=== PATIENT | male | born 1965 | race Caucasian/White ===

== ENCOUNTER 2019-01-01 15:00 | Inpatient (IN) | payer SELFPAY ==
--- NOTE | 2019-01-01 15:08 | PDOC ---
Rapid Medical Evaluation Time Seen by Provider: 01/01/19 15:02 Medical Evaluation: 01/01/19 15:02 Pt presents to the ER with one day of abdominal pain. Admits to nausea without vomiting. Hx of appendectomy in . Exam: TTP of the RUQ, (+) rice's sign Orders: Labs, IV, RUQ US Pt to proceed to the ER for evaluation Discharge Disposition - Diagnosis Abdominal pain Qualifiers: Abdominal location: right upper quadrant Qualified Code(s): R10.11 - Right upper quadrant pain - Referrals - Patient Instructions - Post Discharge Activity
--- NOTE | 2019-01-01 16:15 | PDOC ---
History of Present Illness - General Chief Complaint: Pain Stated Complaint: ABD PAIN/SENT BY PCP Time Seen by Provider: 01/01/19 15:02 History Source: Patient Exam Limitations: No Limitations - History of Present Illness Initial Comments: 01/01/19 17:31 53 yo M with a hx of HTN (on atenolol) presents to the emergency department with RUQ that began at approximately 7am. Per the patient, he last ate at 2am with a cold cuts and cheese. Per the patient, he states it began suddenly with radiation to the back with associative nausea. Denies previous gallbladder disease. Denies the following: fever, chills, chest pain, SOB, dysuria, hematuria, diarrhea, and hematochezia. Past History - Past Medical History Allergies/Adverse Reactions: Allergies Allergy/AdvReac Type Severity Reaction Status Date / Time Penicillins AdvReac Intermediate Vomiting Verified 01/01/19 15:04 COPD: No HTN: Yes - Surgical History Appendectomy: Yes - Suicide/Smoking/Psychosocial Hx Smoking History: Current every day smoker Number of Cigarettes Smoked Daily: 30 Information on smoking cessation initiated: Yes Hx Alcohol Use: Yes Drug/Substance Use Hx: No Review of Systems - Review of Systems Able to Perform ROS?: Yes Is the patient limited Indonesian proficient: No Constitutional: No: Chills, Diaphoresis, Fever, Weakness HEENTM: No: Eye Pain, Ear Pain, Nose Pain, Throat Pain, Mouth Pain Respiratory: No: Cough, Shortness of Breath, Hemoptysis Cardiac (ROS): No: Chest Pain, Lightheadedness, Palpitations, Syncope ABD/GI: Yes: Nausea, Abdominal cramping. No: Constipated, Diarrhea, Rectal Bleeding, Vomiting, Tarry Stools : No: Burning, Dysuria, Hematuria, Incontinence Musculoskeletal: No: Back Pain, Joint Pain, Neck Pain Integumentary: No: Bruising, Erythema, Rash Neurological: No: Headache, Numbness, Tingling, Tremors Psychiatric: No: Change in Appetite Endocrine: No: Unexplained Weight Gain Hematologic/Lymphatic: No: Anemia *Physical Exam - Vital Signs Last Vital Signs Temp Pulse Resp BP Pulse Ox 98 F 97 H 18 135/96 98 01/01/19 15:04 01/01/19 15:04 01/01/19 15:04 01/01/19 15:04 01/01/19 15:04 - Physical Exam General Appearance: Yes: Nourished, Appropriately Dressed. No: Apparent Distress, Intoxicated HEENT: positive: EOMI, YOSVANY, Normal Voice, Symmetrical, Pharynx Normal, Hearing Grossly Normal. negative: Pale Conjunctivae, Scleral Icterus (R), Scleral Icterus (L), Muffled/Hoarse voice, Pharyngeal Erythema, Tonsillar Exudate, Tonsillar Erythema, Nasal Congestion, Rhinorrhea, Excessive drooling Neck: positive: Trachea midline, Supple. negative: Tender, Lymphadenopathy (R) , Lymphadenopathy (L), Tender lateral, Tender midline Respiratory/Chest: positive: Lungs Clear, Normal Breath Sounds. negative: Chest Tender, Respiratory Distress, Accessory Muscle Use, Crackles, Rales, Rhonchi, Stridor, Wheezing Cardiovascular: positive: Regular Rhythm, Regular Rate, S1, S2. negative: Systolic Murmur Gastrointestinal/Abdominal: positive: Normal Bowel Sounds, Tender (RUQ tenderness with positive murphys sign), Flat, Soft. negative: Distended, Guarding, Rebound Lymphatic: negative: Adenopathy Musculoskeletal: positive: Normal Inspection. negative: CVA Tenderness, Vertebral Tenderness Extremity: positive: Normal Capillary Refill, Normal Inspection, Normal Range of Motion. negative: Tender, Swelling, Calf Tenderness Integumentary: positive: Normal Color, Dry, Warm. negative: Swelling, Ecchymosis Neurologic: positive: strike operations officer II-XII NML intact, Fully Oriented, Alert, Normal Mood/ Affect, Normal Response, Motor Strength 5/5. negative: Numbness, Sensory Deficit ED Treatment Course - LABORATORY CBC & Chemistry Diagram: 01/01/19 16:20 01/01/19 16:20 Medical Decision Making - Medical Decision Making 53 yo M with a hx of HTN (on atenolol) presents to the emergency department with RUQ that began at approximately 7am. Initial vitals: Initial Vital Signs Temp Pulse Resp BP Pulse Ox 98 F 97 H 18 135/96 98 01/01/19 15:04 01/01/19 15:04 01/01/19 15:04 01/01/19 15:04 01/01/19 15:04 Work up: ddx: cholelithiasis vs cholecystitis vs choledocholithiasis vs pancreatitis vs gastritis vs hepatitis Laboratory Tests 01/01/19 01/01/19 01/01/19 09:20 16:20 16:20 WBC 15.6 H RBC 6.26 H Hgb 19.0 H Hct 57.0 H MCV 91.0 MCH 30.4 MCHC 33.4 RDW 13.2 Plt Count 198 MPV 9.1 Absolute Neuts (auto) 11.6 H Neutrophils % 74.6 Lymphocytes % 17.5 Monocytes % 6.6 Eosinophils % 0.7 Basophils % 0.6 Nucleated RBC % 0 Sodium Potassium Chloride Carbon Dioxide Anion Gap BUN Creatinine Est GFR (CKD-EPI)AfAm Est GFR (CKD-EPI)NonAf Random Glucose Calcium Total Bilirubin AST ALT Alkaline Phosphatase Creatine Kinase 142 Troponin I < 0.02 Total Protein Albumin Triglycerides Cholesterol Total LDL Cholesterol HDL Cholesterol Blood Type O POSITIVE Antibody Screen Negative 01/01/19 01/01/19 16:20 16:20 WBC RBC Hgb Hct MCV MCH MCHC RDW Plt Count MPV Absolute Neuts (auto) Neutrophils % Lymphocytes % Monocytes % Eosinophils % Basophils % Nucleated RBC % Sodium 140 Potassium 4.3 Chloride 103 Carbon Dioxide 29 Anion Gap 8 BUN 19.0 H Creatinine 1.0 Est GFR (CKD-EPI)AfAm 99.15 Est GFR (CKD-EPI)NonAf 85.55 Random Glucose 145 H Calcium 10.2 H Total Bilirubin 0.5 AST 51 H ALT 88 H Alkaline Phosphatase 89 Creatine Kinase Troponin I Total Protein 7.6 Albumin 4.3 Triglycerides 323 H Cholesterol 213 H Total LDL Cholesterol 130 H HDL Cholesterol 38 L Blood Type O POSITIVE Antibody Screen WBC elevated; leukocytosis. elevated LFTs with hypertriglyceridemia. 01/01/19 19:17 US shows dilated CBD, stone located near the neck at 2 cm, and gallbladder wall thickening with pericholystic fluid consistent with cholecystitis. Patient was started on metronidazole and levaquin due to PCN allergy. Patient was given an additional 1 L of fluids. 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 At the time of sign out the patient was still deciding whether to stay or not. Patient signed out to Dr. Patiño Dispo: Admit *DC/Admit/Observation/Transfer Diagnosis at time of Disposition: Cholecystitis - Referrals - Patient Instructions - Post Discharge Activity
--- NOTE | 2019-01-01 16:30 | PDOC ---
Attending Attestation - Resident Resident Name: Nigel Duncan - ED Attending Attestation I have performed the following: I have examined & evaluated the patient, The case was reviewed & discussed with the resident, I agree w/resident's findings & plan, Exceptions are as noted - HPI HPI: 01/01/19 16:25 53 y/o male c/o ruq pain for several hrs, with n but no vomit; pt denies diarrehea. pt denies feve/chills - Physicial Exam PE: 01/01/19 16:26 pt is awake, alert, in mild distress nc, atr perrla, eomi no scleral icterus cta rrr abd-sft, nd, + ruq ttp; + murphys - Medical Decision Making 01/01/19 16:29 53 y/o male wtih ruq pain. will r/o gall stones. will hydrate. will obtain ruq us. will reascess.
[2019-01-01 17:04] LABS: BASO % 0.6 % (0-2.0); EOS % 0.7 % (0-4.5); LYMPH % 17.5 % (8-40); MCH 30.4 pg (25.7-33.7); MCHC 33.4 g/dl (32.0-35.9); MEAN PLT VOLUME 9.1 fl (7.5-11.1); MONO % 6.6 % (3.8-10.2); NEUT % 74.6 % (42.8-82.8); PLATELET COUNT 198 K/MM3 (134-434); RBC 6.26 M/mm3 (4.00-5.60); RDW 13.2 % (11.9-15.9); WHITE BLOOD COUNT 15.6 K/mm3 (4.0-10.0)
[2019-01-01 17:30] LABS: ALBUMIN 4.3 g/dl (3.4-5.0); BILIRUBIN,TOTAL 0.5 mg/dL (0.2-1); CALCIUM 10.2 mg/dL (8.5-10.1); POTASSIUM 4.3 mmol/L (3.5-5.1); TOT PROT 7.6 g/dl (6.4-8.2)
[2019-01-01] MEDS ORDERED: SODIUM CHLORIDE 1,000 ML IV STA ×2 (17:32→18:57)
[2019-01-01] MEDS ORDERED: ACETAMINOPHEN 1000 MG/100 ML VIAL (NON FORMULARY) IVPB ONE (17:32)
[2019-01-01] MEDS ORDERED: ONDANSETRON 4 MG/2 ML VIAL IVPUSH ONE (17:32)
[2019-01-01] MEDS ORDERED: SODIUM CHLORIDE 0.9% 1000 ML INFUS.BAG IV ONE ×2 (17:49→18:57)
[2019-01-01] MEDS ORDERED: ONDANSETRON 4 MG/2 ML VIAL ONE (18:06)
[2019-01-01] MEDS ORDERED: ACETAMINOPHEN INJECTION 100 ML IVPB ONE (18:06)
--- NOTE | 2019-01-01 20:03 | CONSULT ---
Consult Consult Specialty:: General Surgery Reason for Consultation:: acute cholecytitis - History of Present Illness Chief Complaint: abdominal pain History of Present Illness: 53yo Male PMH HTN (on atenolol), Hyperlipidemia presents to the emergency department with RUQ that began at approximately 7am. Per the patient, he last ate at 2am with a cold cuts and cheese. Per the patient, he states it began suddenly with radiation to the back with associative nausea. Denies previous gallbladder disease. Denies the following: fever, chills, chest pain, SOB, dysuria, hematuria, diarrhea, and hematochezia. We were called to assess. - History Source History Provided By: Patient, Medical Record Limitations to Obtaining History: No Limitations - Past Medical History Cardio/Vascular: Yes: HTN, Hyperlipdemia - Past Surgical History Past Surgical History: Yes: Appendectomy - Alcohol/Substance Use Hx Alcohol Use: Yes - Smoking History Smoking history: Current every day smoker Have you smoked in the past 12 months: Yes Aproximately how many cigarettes per day: 30 - Social History Place of : [facility] Medications - Allergies Allergies/Adverse Reactions: Allergies Allergy/AdvReac Type Severity Reaction Status Date / Time Penicillins AdvReac Intermediate Vomiting Verified 01/01/19 15:04 Review of Systems - Review of Systems Constitutional: denies: Chills, Fever Eyes: denies: Blind Spots, Recent Change in Vision HENT: denies: Difficult Swallowing, Throat Pain Neck: denies: Pain on Movement, Tenderness Cardiovascular: denies: Chest Pain, Palpitations Respiratory: denies: Cough, SOB Gastrointestinal: reports: Abdominal Pain, Indigestion. denies: Bloating, Constipation, Nausea Genitourinary: denies: Discharge, Dysuria Breasts: reports: No Symptoms Reported. denies: Pain Musculoskeletal: denies: Back Pain, Muscle Pain Integumentary: denies: Lump, Pallor, Rash Neurological: denies: Headache, Seizure, Syncope Endocrine: denies: Unexplained Weight Gain, Unexplained Weight Loss Hematology/Lymphatic: denies: Easily Bruised, Excessive Bleeding Psychiatric: denies: Anxiety, Depression Physical Exam Vital Signs: Vital Signs Temperature 98 F 01/01/19 15:04 Pulse Rate 97 H 01/01/19 15:04 Respiratory Rate 18 01/01/19 15:04 Blood Pressure 135/96 01/01/19 15:04 O2 Sat by Pulse Oximetry (%) 98 01/01/19 15:55 Constitutional: Yes: Well Nourished, No Distress, Calm Eyes: Yes: Conjunctiva Clear, EOM Intact HENT: Yes: Atraumatic, Normocephalic Neck: Yes: Supple, Trachea Midline Cardiovascular: Yes: Regular Rate and Rhythm, S1, S2 Respiratory: Yes: Regular, CTA Bilaterally Gastrointestinal: Yes: Normal Bowel Sounds, Soft, Tenderness (RUQ +Pilgrim sign) Renal/: No: CVA Tenderness - Left, CVA Tenderness - Right Breast(s): No: Nipple Inversion, Skin Changes Musculoskeletal: No: Muscle Pain, Muscle Weakness Extremities: No: Cool, Cyanosis Edema: No Peripheral Pulses WNL: Yes Integumentary: No: Jaundice, Rash Neurological: Yes: Alert, Oriented Psychiatric: Yes: Alert, Oriented Labs: CBC, BMP 01/01/19 16:20 01/01/19 16:20 Imaging - Results Ultrasound: Report Reviewed MRI: Report Reviewed Problem List - Problems (1) Cholecystitis Assessment/Plan: 53yo male with acute cholecystitis NPO and IVF hydration IV antibiotics f/u MRI and US Discussed with patient risks, benefits and alternatives of laparoscopic possible open cholecystectomy, including but not limited to bleeding, infection , injury to adjacent structures, leak or injury, intraabdominal abscess, incisional hernia, need for further procedures, ; alternatives include antibiotics, delayed or no surgery - risks of this include failure of nonoperative therapy, perforation, sepsis, recurrence, . Patient desires to proceed with operation - will take to OR for above. Informed consent signed for same. Thank you for the opportunity to participate in the care of this patient. Code(s): K81.9 - CHOLECYSTITIS, UNSPECIFIED (2) Abdominal pain in male Code(s): R10.9 - UNSPECIFIED ABDOMINAL PAIN (3) Hyperlipemia Code(s): E78.5 - HYPERLIPIDEMIA, UNSPECIFIED (4) HTN (hypertension) Code(s): I10 - ESSENTIAL (PRIMARY) HYPERTENSION
--- NOTE | 2019-01-01 21:26 | PDOC ---
*Physical Exam - Vital Signs Last Vital Signs Temp Pulse Resp BP Pulse Ox 98 F 97 H 18 135/96 98 01/01/19 15:04 01/01/19 15:04 01/01/19 15:04 01/01/19 15:04 01/01/19 15:55 ED Treatment Course - LABORATORY CBC & Chemistry Diagram: 01/01/19 16:20 01/01/19 16:20 - ADDITIONAL ORDERS Additional order review: Laboratory Results 01/01/19 01/01/19 16:20 16:20 Sodium 140 Potassium 4.3 Chloride 103 Carbon Dioxide 29 Anion Gap 8 BUN 19.0 H Creatinine 1.0 Est GFR (CKD-EPI)AfAm 99.15 Est GFR (CKD-EPI)NonAf 85.55 Random Glucose 145 H Calcium 10.2 H Total Bilirubin 0.5 AST 51 H ALT 88 H Alkaline Phosphatase 89 Creatine Kinase 142 Troponin I < 0.02 Total Protein 7.6 Albumin 4.3 Triglycerides 323 H Cholesterol 213 H Total LDL Cholesterol 130 H HDL Cholesterol 38 L 01/01/19 16:20 RBC 6.26 H MCV 91.0 MCHC 33.4 RDW 13.2 MPV 9.1 Neutrophils % 74.6 Lymphocytes % 17.5 Monocytes % 6.6 Eosinophils % 0.7 Basophils % 0.6 - RADIOLOGY Radiology Studies Ordered: Category Date Time Status ABDOMEN MRI W/O CONTRAST /MRCP [MRI] Stat MRI 01/01/19 19:42 Ordered - Medications Given in the ED: ED Medications Discontinued Medications Generic Name Dose Route Start Last Admin Trade Name Oliverioq PRN Reason Stop Dose Admin Acetaminophen 1,000 mg 01/01/19 17:32 01/01/19 18:11 Ofirmev Injection - IVPB 01/01/19 17:33 1,000 mg ONCE ONE Administration Sodium Chloride 1,000 mls @ 1,000 mls/hr 01/01/19 17:32 01/01/19 18:11 Normal Saline - IV 01/01/19 18:31 1,000 mls/hr ASDIR STA Administration Ondansetron HCl 4 mg 01/01/19 17:32 01/01/19 18:12 Zofran Injection IVPUSH 01/01/19 17:33 Not Given ONCE ONE Medical Decision Making - Medical Decision Making 01/01/19 21:21 CT: cholelithiasis w some gallbladder wall thickening suggesting acute cholecystitis, mildly enlarged liver w diffuse fatty infiltration WBC 15 AST 50 ALT 80 total bili 0.5 Pravin Bui is a 53 yo M with a hx of HTN presenting with RUQ pain. CT shows cholelithiasis w some gallbladder wall thickening due to acute cholecystitis. Pt given 2L NS, tylenol, zofran, metronidazole + levaquin. Dr Ramirez surgeon consulted. Dr Vizcarra GI consulted for MRCP ordered. Labs show elevated WBC 15, AST 50, ALT 80. Normal total bili 0.5m, neg trop Admitted to med/surg Dr Rothman for cholecystitis. *DC/Admit/Observation/Transfer Diagnosis at time of Disposition: Cholecystitis - Discharge Dispostion Condition at time of disposition: Improved Decision to Admit order Date/Time: Decision to Admit Order Category Date Time Status Decision to Admit to Hospital Routine Admission 01/01/19 19:32 Active - Referrals Referrals: Ortiz Washburn MD [Primary Care Provider] - - Patient Instructions Printed Discharge Instructions: Cholecystectomy -- Laparoscopic Surgery Additional Instructions: Postoperative instructions: You had a laparoscopic cholecystectomy on DATE by Dr. Ajit Ramirez of [facility]. Activity: Resume your usual activities gradually, but no heavy exertion or lifting more than 10-15 pounds for 1 month. Remove dressings 48 hours after surgery; sticky tapes underneath will fall off by themselves. You may shower daily starting then, just pat the incision areas dry. No bath or swimming until skin incisions have healed. Eat lightly at first, but advance to your usual diet as tolerated. Pain: For pain, you may use and alternate Tylenol (acetaminophen) 1-2 pills and/ or ibuprofen 200 mg (1-3 pills) every 6 hours each as needed; this means that you can take one OR the other at 3-hour intervals. If you are prescribed a Tylenol/narcotic combination for severe pain, use it instead of plain Tylenol as needed and switch back when your pain starts decreasing. Do not take more than 4000mg of acetaminophen in a day. Take medications as prescribed or indicated on the labeling. Follow-up: Call Dr. Ramirez office at [phone] to make your postop appointment (Sunday in approximately 2 weeks after surgery). Clinic is held in the [facility] on the first floor of [facility]. Call the office if you have: * increasing pain not responsive to pain medication * fever of 101F or higher * vomiting * unusual or increasing bleeding or drainage from wounds * increasing redness or swelling at wound sites * inability to urinate Also, see your primary medical doctor within 1-2 weeks. - Post Discharge Activity
--- NOTE | 2019-01-01 23:38 | HP ---
Admitting History and Physical - Primary Care Physician PCP: Dr. Rothman - Admission Chief Complaint: abdominal pain, nausea without vomiting History of Present Illness: 53 year old male with PMHX of HTN arrived to ED with RUQ pain that began in the morning. Last meal was 2am with a cold cuts and cheese. Patient states it began suddenly with radiation to the back with associative nausea. Denies previous gallbladder disease. Denies fever, chills, vomiting, chest pain, SOB, dysuria, hematuria, diarrhea. History Source: Patient Limitations to Obtaining History: No Limitations - Past Medical History Cardiovascular: Yes: HTN - Past Surgical History Past Surgical History: Yes: Appendectomy - Smoking History Smoking history: Current every day smoker Have you smoked in the past 12 months: Yes Aproximately how many cigarettes per day: 30 - Alcohol/Substance Use Hx Alcohol Use: Yes (social ) History of Substance Use: reports: None - Social History History of Recent Travel: No Home Medications - Allergies Allergies/Adverse Reactions: Allergies Allergy/AdvReac Type Severity Reaction Status Date / Time Penicillins AdvReac Intermediate Vomiting Verified 01/01/19 15:04 Family Disease History - Family Disease History Family Disease History: Diabetes: Father ([place]/ stroke ), Heart Disease: Father Review of Systems - Review of Systems Constitutional: reports: No Symptoms Eyes: reports: No Symptoms HENT: reports: No Symptoms Neck: reports: No Symptoms Cardiovascular: reports: No Symptoms Respiratory: reports: No Symptoms Gastrointestinal: reports: Abdominal Pain, Nausea Genitourinary: reports: No Symptoms Musculoskeletal: reports: No Symptoms Integumentary: reports: No Symptoms Neurological: reports: No Symptoms Endocrine: reports: No Symptoms Physical Examination Vital Signs: Vital Signs Temperature 98 F 01/01/19 15:04 Pulse Rate 97 H 01/01/19 15:04 Respiratory Rate 18 01/01/19 15:04 Blood Pressure 135/96 01/01/19 15:04 O2 Sat by Pulse Oximetry (%) 98 01/01/19 15:55 Constitutional: Yes: No Distress, Calm Eyes: Yes: Conjunctiva Clear, EOM Intact HENT: Yes: Atraumatic, Normocephalic Neck: Yes: Supple, Trachea Midline Cardiovascular: Yes: Regular Rate and Rhythm Respiratory: Yes: Regular, CTA Bilaterally Gastrointestinal: Yes: Normal Bowel Sounds, Soft, Distention, Tenderness, Tenderness, Rebound Musculoskeletal: Yes: WNL Extremities: Yes: WNL Integumentary: Yes: WNL Neurological: Yes: Alert, Oriented Labs: CBC, BMP 01/01/19 16:20 01/01/19 16:20 Imaging - Results Ultrasound: Report Reviewed (US shows dilated CBD, stone located near the neck at 2 cm, and gallbladder wall thickening with pericholystic fluid consistent with cholecystitis.) MRI: Report Reviewed (Ct Abd: cholelithiasis w some gallbladder wall thickening suggesting acute cholecystitis, mildly enlarged liver w diffuse fatty infiltration) Other: Report Reviewed (WBC:15 AST 50 ALT 80 Total bili 0.5) Problem List - Problems (1) HTN (hypertension) Code(s): I10 - ESSENTIAL (PRIMARY) HYPERTENSION (2) Cholecystitis Code(s): K81.9 - CHOLECYSTITIS, UNSPECIFIED Assessment/Plan 53 yo M with a hx of HTN presenting with RUQ pain # acute Cholecysitits US: shows dilated CBD, stone located near the neck at 2 cm, and gallbladder wall thickening with pericholystic fluid consistent with cholecystitis. CT: cholelithiasis w some gallbladder wall thickening suggesting acute cholecystitis, mildly enlarged liver w diffuse fatty infiltration WBC 15 AST 50 ALT 80 total bili 0.5 In ED given: 2L NS, tylenol, zofran, metronidazole + levaquin GI was consulted, Dr. Vizcarra order for MRCP, will follow in AM - NPO - continue with IV fluids - continue with falgyl and levaquin - pain management # Nicotine Use - continue with nicotine patch Visit type - Emergency Visit Emergency Visit: Yes ED Registration Date: 01/01/19 Care time: The patient presented to the Emergency Department on the above date and was hospitalized for further evaluation of their emergent condition. - New Patient This patient is new to me today: Yes Date on this admission: 01/01/19 - Critical Care Critical Care patient: No
[2019-01-01] MEDS ORDERED: SODIUM CHLORIDE 1,000 ML IV SCH (23:45)
[2019-01-01] MEDS ORDERED: ONDANSETRON 4 MG/2 ML VIAL IVPUSH PRN ×2 (23:51→23:58)
[2019-01-02] MEDS: ACETAMINOPHEN 1000 MG/100 ML VIAL (NON FORMULARY) IVPB PRN ×2 (02:14→09:55)
[2019-01-02] MEDS: NICOTINE 21 MG/24 HOURS TOPICAL PATCH TD SCH ×2 (02:48→10:15)
[2019-01-02 04:36] VITALS: BMI 31.0
--- NOTE | 2019-01-02 10:52 | PN ---
Progress Note, Physician Chief Complaint: awake alert events reviewed patient appears comfortable denies fevers, but does report chills h/o smoking nicotine patch ordered - Current Medication List Current Medications: Active Medications Acetaminophen (Ofirmev Injection -) 1,000 mg IVPB Q6H PRN PRN Reason: PAIN LEVEL 4 - 6 Last Admin: 01/02/19 09:55 Dose: 1,000 mg Sodium Chloride (Normal Saline -) 1,000 mls @ 50 mls/hr IV ASDIR MICHAEL Stop: 01/02/19 23:51 Last Admin: 01/02/19 02:47 Dose: 50 mls/hr Metronidazole (Flagyl 500mg Premixed Ivpb -) 500 mg in 100 mls @ 100 mls/hr IVPB Q8H-IV MICHAEL Last Admin: 01/02/19 10:15 Dose: 100 mls/hr Levofloxacin (Levaquin 750 Mg Premixed Ivpb -) 750 mg in 150 mls @ 150 mls/hr IVPB DAILY MICHAEL Stop: 01/07/19 23:59 Nicotine (Nicoderm Patch -) 21 mg TD DAILY MICHAEL Last Admin: 01/02/19 10:15 Dose: Not Given Ondansetron HCl (Zofran Injection) 4 mg IVPUSH Q8H PRN PRN Reason: NAUSEA - Objective Vital Signs: Vital Signs Temperature 97.8 F 01/02/19 07:02 Pulse Rate 99 H 01/02/19 07:02 Respiratory Rate 20 01/02/19 07:02 Blood Pressure 145/92 01/02/19 07:02 O2 Sat by Pulse Oximetry (%) 98 01/01/19 15:55 Constitutional: Yes: No Distress Eyes: Yes: WNL HENT: Yes: WNL Neck: Yes: WNL Cardiovascular: Yes: WNL Respiratory: Yes: WNL Gastrointestinal: Yes: Soft, Abdomen, Obese, Tenderness Musculoskeletal: Yes: WNL Extremities: Yes: WNL Edema: No Peripheral Pulses WNL: Yes Integumentary: Yes: WNL Wound/Incision: Yes: Clean/Dry Neurological: Yes: WNL ...Motor Strength: WNL Psychiatric: Yes: WNL Labs: CBC, BMP 01/01/19 16:20 01/01/19 16:20 Problem List - Problems (1) Tobacco abuse counseling Code(s): Z71.6 - TOBACCO ABUSE COUNSELING (2) Smoker Code(s): F17.200 - NICOTINE DEPENDENCE, UNSPECIFIED, UNCOMPLICATED (3) Abdominal pain in male Code(s): R10.9 - UNSPECIFIED ABDOMINAL PAIN (4) Cholecystitis Code(s): K81.9 - CHOLECYSTITIS, UNSPECIFIED (5) HTN (hypertension) Code(s): I10 - ESSENTIAL (PRIMARY) HYPERTENSION (6) Hyperlipemia Code(s): E78.5 - HYPERLIPIDEMIA, UNSPECIFIED Assessment/Plan agree with Dr Ramirez patient scheduled for cholcystectomy medically cleared with no medical contraindication for surgery. dvt prophylaxis/oob to chair early ambulation\ monitor BP off meds as he is npo for sx incentive spirometry will order duo neb prn check labs in am surgery f/u appreciated
[2019-01-02] MEDS ORDERED: METOPROLOL TARTRATE 5 MG/5 ML VIAL IVPB PRN ×2 (10:53→17:08)
[2019-01-02] MEDS ORDERED: ALBUTEROL SO4 2.5/IPRATROPIUM 0.5 INH SOL 3 ML VIAL.NEB. NEB PRN ×2 (10:54→17:08)
[2019-01-02] MEDS ORDERED: BENZOIN TINCTURE SWABSTICK TP ONE (13:16)
[2019-01-02] MEDS ORDERED: BUPIVACAINE HCL/PF 0.5% (5 MG/ML) 30 ML VIAL IJ ONE ×3 (13:16→15:20)
[2019-01-02] MEDS ORDERED: PROPOFOL 20 ML ONE ×2 (13:39→15:22)
[2019-01-02] MEDS ORDERED: ROCURONIUM BROMIDE 50 MG/5 ML SYRINGE ONE (13:56)
[2019-01-02] MEDS ORDERED: METOPROLOL TARTRATE 5 MG/5 ML VIAL ONE (14:11)
[2019-01-02] MEDS ORDERED: MIDAZOLAM HCL 2 MG/2 ML SINGLE DOSE VIAL ONE (14:23)
[2019-01-02] MEDS ORDERED: DEXAMETHASONE SOD PHOSPHATE 4 MG/1 ML VIAL ONE (14:45)
[2019-01-02] MEDS ORDERED: NEOSTIGMINE METHYLSULFATE 0.5 MG/ML - 10 ML MDV ONE (15:08)
[2019-01-02] MEDS ORDERED: GLYCOPYRROLATE 0.2 MG/1 ML VIAL ONE (15:08)
--- NOTE | 2019-01-02 15:30 | EKG ---
Test Reason : Blood Pressure : / mmHG Vent. Rate : 094 BPM Atrial Rate : 094 BPM P-R Int : 124 ms QRS Dur : 088 ms QT Int : 352 ms P-R-T Axes : 055 073 049 degrees QTc Int : 440 ms NORMAL SINUS RHYTHM SEPTAL INFARCT , AGE UNDETERMINED ABNORMAL ECG NO PREVIOUS ECGS AVAILABLE Confirmed by DARIA NUNN, AMANDA ([id number]) on 01/02/2019 3:29:48 PM Referred By: NATE 3 Confirmed By:AMANDA HUFF MD
--- NOTE | 2019-01-02 15:55 | OP ---
Operative Note - Note: Operative Date: 01/02/19 Pre-Operative Diagnosis: Acute Cholecystitis Operation: Laparoscopic Cholecystectomy Findings: distended edematous GB, decompression needle 65ml green bile, critical view was identified Post-Operative Diagnosis: Same as Pre-op Surgeon: Ajit Ramirez Fixture Maker: Griffin Haines Anesthesia: General, Local (0.5% Marcaine ) Specimens Removed: gallbladder and stones Estimated Blood Loss (mls): 30 Fluid Volume Replaced (mls): 1,100 Operative Report Dictated: Yes
[2019-01-02] MEDS ORDERED: MORPHINE SULFATE 2 MG/ML VIAL IVPUSH PRN (15:56)
[2019-01-02] MEDS ORDERED: SODIUM CHLORIDE 1,000 ML IV SCH (17:08)
[2019-01-02] MEDS ORDERED: ONDANSETRON 4 MG/2 ML VIAL IVPUSH PRN (17:08)
[2019-01-02] MEDS ORDERED: ACETAMINOPHEN 1000 MG/100 ML VIAL (NON FORMULARY) IVPB ONE (17:20)
--- NOTE | 2019-01-02 18:28 | OP ---
DATE OF OPERATION: 01/02/2019 PREOPERATIVE DIAGNOSIS: Acute cholecystitis. POSTOPERATIVE DIAGNOSIS: Acute cholecystitis. PROCEDURE: Laparoscopic cholecystectomy. ATTENDING SURGEON: Ajit Ramirez MD HALL MONITOR: Griffin Haines MD ANESTHESIA: General and local. Local consisted of 0.5% Marcaine, a total of 20 mL was given at the port sites. ESTIMATED BLOOD LOSS: 30 mL. IV FLUID ADMINISTERED: 1100 mL of crystalloid. BRIEF FINDINGS: Patient had a distended edematous gallbladder. With decompression with a needle, 65 mL of green bile was yielded. Critical view was identified. All instrument counts were correct. INDICATION: The patient is a 53-year-old male presenting with 1 day of right upper quadrant abdominal pain, history of biliary colic symptoms, confirmed the presence of acute cholecystitis, with cholecystitis present on ultrasound and MRI, clear obstruction of the cystic duct. He was counseled regarding risks, benefits, alternatives to surgical cholecystectomy, signed informed consent, and was taken for the procedure. PROCEDURE: The patient was brought to the operating room. He was placed in supine position on operating table. The right arm was tucked, the left arm extended 90 degrees perpendicular to the body's midline axis. The lower extremities had SCDs placed to compression. He received intravenous Levaquin and Flagyl prior to start of surgery. He was induced with general anesthesia. He was endotracheally intubated. With all parties in agreement, the anterior abdominal wall was shaved, prepped and draped in standard surgical fashion. We began with a formal timeout, identifying the operative procedure. With all parties in agreement, we began then with a supraumbilical approach, Shelby entry into the abdomen. It was incised with a 15 blade scalpel. It was deepened and widened through subcutaneous tissue. Care was taken to dissect down with Bovie cautery to the midline fascia of the rectus muscles, which was elevated into the surgical field. A blunt entry was then made into the abdomen with a Frankie clamp, and then a [id number]-xs-rjlfc 0 Vicryl was laid in as a cgzldx-[id number]-sqysv to ablate the space postoperatively. A 12-mm Shelby trocar was then introduced into the abdomen and pneumoperitoneum was established at 15 mmHg. Once the pneumoperitoneum was established, we inspected the entry site, which appeared atraumatic. Additional port sites at the subxiphoid position in the right abdomen in 2 places were placed under direct visualization with 5-mm ports. The gallbladder was then noted to be distended and edematous. A decompression needle was introduced under direct visualization and decompressed approximately 65 mL of green bile, at which point the gallbladder could be manipulated and was grasped and retracted towards the left shoulder cranially. The infundibulum was also retracted laterally towards the right abdomen, in which we began to dissect the cystic duct structures. A plane was developed between the cystic duct and the cystic artery, establishing the critical view of safety. Once identified, Endo Clip 5-mm aluminum clips were used to control the cystic duct and cystic artery. They were then transected with Endo Agustin and the gallbladder was elevated from the hepatic bed using Bovie cautery, from the cystic structures all the way to the dome. This was done under direct visualization in a controlled fashion. The gallbladder was then retrieved from the abdomen using an EndoCatch bag after re-siting the camera to the subxiphoid position. With the gallbladder outside of the abdomen, it was passed off for final pathologic diagnosis. It appeared to have a stone palpable. We then turned our attention to the hepatic bed, which had a small punctum of bleeding controlled with Bovie cautery. The area was irrigated of all bloody effluent as well as bile spillage, and suctioned clear with 0.5 L of sterile saline irrigant. We then turned our attention to removal of the trocar sites. Omentum was placed under the liver. The trocars were removed under direct visualization, the pneumoperitoneum relieved. The umbilical port was then ablated, as planned, with a bzvtdb-nz-pulqb, and then skin closures were made with 4-0 Vicryl in an interrupted fashion at the 5-mm port sites and in running subcuticular fashion at the Shelby entry. The patient's skin was cleaned, Dermabond was placed. The patient was awoken from general anesthesia, having tolerated the procedure well. He was stable throughout. MD GEE Robles/[id number]
--- NOTE | 2019-01-02 21:19 | CON.GI ---
Consult Consult Specialty:: Gastroenterology Referred by:: Dr. Luis Roberts Reason for Consultation:: choledocholithiasis - History of Present Illness Chief Complaint: abd pain History of Present Illness: 53M presented with pain found to be due to cholecystitis who has already undergone a cholecystectomy earlier today. I was called to evaluate for choledocholithiasis but his MRCP excluded it preoperatively. He had an EGD and a colonoscopy over 10 years ago at [facility] which revealed GERD and no polyps. He has no chronic GI complaints or FH of GI cancer. - History Source History Provided By: Patient Limitations to Obtaining History: No Limitations - Past Medical History Cardio/Vascular: Yes: HTN, Hyperlipdemia Gastrointestinal: Yes: GERD - Past Surgical History Past Surgical History: Yes: Appendectomy, Cholecystectomy - Alcohol/Substance Use Hx Alcohol Use: Yes (socially) History of Substance Use: reports: None - Smoking History Smoking history: Current every day smoker Have you smoked in the past 12 months: Yes Aproximately how many cigarettes per day: 30 - Social History Usual Living Arrangement: Alone ADL: Independent Occupation: owns [employer], [employer] Place of : Other ([place]) Came to [place] (year): age 12 History of Recent Travel: No Home Medications - Allergies Allergies/Adverse Reactions: Allergies Allergy/AdvReac Type Severity Reaction Status Date / Time Penicillins AdvReac Intermediate Vomiting Verified 01/01/19 15:04 Family Disease History - Family Disease History Family Disease History: Diabetes: Father ( 78 [place]/ stroke ), Heart Disease: Father, Other: Mother (alive at 79) Review of Systems - Review of Systems Constitutional: reports: No Symptoms Eyes: reports: No Symptoms HENT: reports: No Symptoms Neck: reports: No Symptoms Cardiovascular: reports: No Symptoms Respiratory: reports: No Symptoms Gastrointestinal: reports: Abdominal Pain Genitourinary: reports: No Symptoms Musculoskeletal: reports: No Symptoms Physical Exam-GI Vital Signs: Vital Signs Temperature 98.1 F 01/02/19 20:25 Pulse Rate 100 H 01/02/19 20:25 Respiratory Rate 18 01/02/19 20:25 Blood Pressure 130/84 01/02/19 20:25 O2 Sat by Pulse Oximetry (%) 95 01/02/19 17:20 CBC,CMP WBC 15.6 K/mm3 (4.0-10.0) H 01/01/19 16:20 RBC 6.26 M/mm3 (4.00-5.60) H 01/01/19 16:20 Hgb 19.0 GM/dL (11.7-16.9) H 01/01/19 16:20 Hct 57.0 % (35.4-49) H 01/01/19 16:20 MCV 91.0 fl (80-96) 01/01/19 16:20 MCH 30.4 pg (25.7-33.7) 01/01/19 16:20 MCHC 33.4 g/dl (32.0-35.9) 01/01/19 16:20 RDW 13.2 % (11.9-15.9) 01/01/19 16:20 Plt Count 198 K/MM3 (134-434) 01/01/19 16:20 MPV 9.1 fl (7.5-11.1) 01/01/19 16:20 Absolute Neuts (auto) 11.6 K/mm3 (1.5-8.0) H 01/01/19 16:20 Neutrophils % 74.6 % (42.8-82.8) 01/01/19 16:20 Lymphocytes % 17.5 % (8-40) 01/01/19 16:20 Monocytes % 6.6 % (3.8-10.2) 01/01/19 16:20 Eosinophils % 0.7 % (0-4.5) 01/01/19 16:20 Basophils % 0.6 % (0-2.0) 01/01/19 16:20 Nucleated RBC % 0 % (0-0) 01/01/19 16:20 Sodium 140 mmol/L (136-145) 01/01/19 16:20 Potassium 4.3 mmol/L (3.5-5.1) 01/01/19 16:20 Chloride 103 mmol/L (98-107) 01/01/19 16:20 Carbon Dioxide 29 mmol/L (21-32) 01/01/19 16:20 Anion Gap 8 MMOL/L (8-16) 01/01/19 16:20 BUN 19.0 mg/dL (7-18) H 01/01/19 16:20 Creatinine 1.0 mg/dL (0.55-1.3) 01/01/19 16:20 Est GFR (CKD-EPI)AfAm 99.15 01/01/19 16:20 Est GFR (CKD-EPI)NonAf 85.55 01/01/19 16:20 Random Glucose 145 mg/dL (74-106) H 01/01/19 16:20 Calcium 10.2 mg/dL (8.5-10.1) H 01/01/19 16:20 Total Bilirubin 0.5 mg/dL (0.2-1) 01/01/19 16:20 AST 51 U/L (15-37) H 01/01/19 16:20 ALT 88 U/L (13-61) H 01/01/19 16:20 Alkaline Phosphatase 89 U/L (45-117) 01/01/19 16:20 Creatine Kinase 142 U/L (26-308) 01/01/19 16:20 Troponin I < 0.02 ng/ml (0.00-0.05) 01/01/19 16:20 Total Protein 7.6 g/dl (6.4-8.2) 01/01/19 16:20 Albumin 4.3 g/dl (3.4-5.0) 01/01/19 16:20 Triglycerides 323 mg/dL (0-150) H 01/01/19 16:20 Cholesterol 213 mg/dL (50-200) H 01/01/19 16:20 Total LDL Cholesterol 130 mg/dL (5-100) H 01/01/19 16:20 HDL Cholesterol 38 mg/dL (40-60) L 01/01/19 16:20 Current Medications Generic Name Dose Route Start Last Admin Trade Name Freq PRN Reason Stop Dose Admin Acetaminophen 1,000 mg 01/02/19 17:08 Ofirmev Injection - IVPB Q6H PRN PAIN LEVEL 4 - 6 Albuterol/Ipratropium 1 amp 01/02/19 17:08 Duoneb - NEB Q6H PRN SHORTNESS OF BREATH Fentanyl 50 mcg 01/02/19 16:05 Sublimaze Injection - IVPUSH [id number] PRN PAIN-PACU ORDER X 4 DOSES ONLY Metronidazole 500 mg in 100 mls @ 100 mls/hr 01/02/19 18:00 01/02/19 17:59 Flagyl 500mg Premixed Ivpb - IVPB 100 mls/hr Q8H-IV MICHAEL Administration Levofloxacin 750 mg in 150 mls @ 150 mls/hr 01/03/19 10:00 Levaquin 750 Mg Premixed Ivpb - IVPB 01/07/19 23:59 DAILY MICHAEL Sodium Chloride 1,000 mls @ 50 mls/hr 01/02/19 17:08 01/02/19 18:00 Normal Saline - IV 01/02/19 23:51 50 mls/hr ASDIR MICHAEL Administration Metoprolol Tartrate 5 mg 01/02/19 17:08 Lopressor Injection - IVPB Q6H PRN HYPERTENSION Morphine Sulfate 4 mg 01/02/19 17:08 Morphine Sulfate IVPUSH Q4H PRN PAIN LEVEL 7 - 10 Nicotine 21 mg 01/03/19 10:00 Nicoderm Patch - TD DAILY MICHAEL Ondansetron HCl 4 mg 01/02/19 17:08 Zofran Injection IVPUSH Q8H PRN NAUSEA Constitutional: Yes: Calm Eyes: Yes: Conjunctiva Clear HENT: Yes: Normocephalic Neck: Yes: Supple Cardiovascular: Yes: Regular Rate and Rhythm Respiratory: Yes: CTA Bilaterally Gastrointestinal Inspection: Yes: Scars (healing laparoscopic incisions) ...Palpate: Yes: Soft, Other (nontender) Labs: CBC, BMP 01/01/19 16:20 01/01/19 16:20 Imaging - Results MRI: Report Reviewed ( Final Report MR ABDOMEN MRI W/O CONTRAST /MRCP Show Printer-Friendly Version Patient Name: Marciano Bui : 1965 ID: [id number] Study Date: 01-Jan-2019 21:57 [facility] Name: MARCIANO BUI DEPARTMENT OF RADIOLOGY Phys: Luis Patiño RESIDENT : 1965 Age: 53 Sex: M [facility] Acct: [id number] Loc: [address] Exam Date: 01/01/19 Status: [place] [address] Unit Number: [id number] EXAM#: TYPE/EXAM: RESULT: [id number] MRI/ABDOMEN MRI W/O CONTRAST /MRCP MRI OF THE ABDOMEN WITHOUT AND WITH IV GADOLINIUM WITH MRCP HISTORY: 53-year-old male with cholecystitis and clinical suspicion CBD stones TECHNIQUE: Multiplanar multisequential MRI of the abdomen without the intravenous administration of contrast were performed on a high field 1.5 Joanne GE magnet. Axial and coronal T2 fat-sat, axial T1 (in and out of phase), axial T2 FIESTA, axial T1 fat sat - LAVA without contrast in addition to coronal LAVA and axial diffusion weighted images were performed. Axial and coronal thin and thick slab 3 D MRCP was performed. No comparison MRI is available. Correlation is made with ultrasound of the abdomen dated January 01, 2019. FINDINGS: The visualized lung bases inferior mediastinum are unremarkable. The liver is enlarged demonstrating severe loss of signal on out of phase imaging suggest of fatty infiltration. There is no focal hepatic signal abnormality. The spleen is normal in size with no evidence of focal abnormal signal. The pancreas is homogeneous in signal containing 8 mm cyst in the pancreatic head. The pancreatic duct is nondilated. The gallbladder is distended containing 1.5 cm stone in the gallbladder neck. There is gallbladder wall thickening and pericholecystic fluid. There is celina hepatis edema. The CBD is normal in caliber with no evidence of filling defects. There is no intrahepatic biliary ductal dilatation. The adrenal glands are unremarkable. There is a 2.4 cm right upper renal pole cyst. There is a 8 mm right lower renal pole cyst. There is 2 cm left upper renal pole cyst. There is a 1 cm T2 hypointense lesion with mild restricted diffusion in the most superior aspect of the left kidney. There is no hydronephrosis. There are no abnormally dilated bowel loops. There is no abdominal ascites. There are shotty lymph nodes in the celina hepatis and upper abdominal retroperitoneum likely reactive to the cholecystitis. The visualized osseous structures are grossly unremarkable. IMPRESSION: Cholelithiasis with MRI findings of acute cholecystitis. No choledocholithiasis or pancreaticobiliary ductal dilatation. 8 mm pancreatic head cyst. The differential diagnoses include parenchymal cyst, pseudocyst or early cystic neoplasm-IPMNT. Follow-up MRI with MRCP in one year is suggested. Hepatomegaly with severe fatty infiltration. Simple appearing renal cysts. 1 cm T2 hypointense lesion with some restricted diffusion. This is commensurate with Bosniak 2F- indeterminate cyst. Follow-up MRI with contrast in 6 months is suggested. Reported By: Jn Bunch MD 01/02/19 1211 Technologist: Jourdan Macias Transcribed Date/Time: 01/02/19 1211 Rn Acute Care: nJ Bunch Printed Date/Time: By: Signed by: Jn Bunch Signed on: 02-Jan-2019 12: 13 Final Report MR ABDOMEN MRI W/O CONTRAST /MRCP Show Printer- Friendly Version Patient Name: Marciano Bui : 1965 ID: [id number] Study Date: 01-Jan-2019 21:57 [facility] Name: MARCIANO BUI DEPARTMENT OF RADIOLOGY Phys: KaylynLuis nielsen RESIDENT : 1965 Age : 53 Sex: M [facility] Acct: [id number] [facility] Exam Date: 01/01/19 Status: [place] [address] Unit Number : [id number] EXAM#: TYPE/ EXAM: RESULT: [id number] MRI/ABDOMEN MRI W/O CONTRAST /MRCP MRI OF THE ABDOMEN WITHOUT AND WITH IV GADOLINIUM WITH MRCP HISTORY: 53-year-old male with cholecystitis and clinical suspicion CBD stones TECHNIQUE: Multiplanar multisequential MRI of the abdomen without the intravenous administration of contrast were performed on a high field 1.5 Joanne GE magnet. Axial and coronal T2 fat-sat, axial T1 (in and out of phase), axial T2 FIESTA, axial T1 fat sat - LAVA without contrast in addition to coronal LAVA and axial diffusion weighted images were performed. Axial and coronal thin and thick slab 3 D MRCP was performed. No comparison MRI is available. Correlation is made with ultrasound of the abdomen dated January 01, 2019. FINDINGS: The visualized lung bases inferior mediastinum are unremarkable. The liver is enlarged demonstrating severe loss of signal on out of phase imaging suggest of fatty infiltration. There is no focal hepatic signal abnormality. The spleen is normal in size with no evidence of focal abnormal signal. The pancreas is homogeneous in signal containing 8 mm cyst in the pancreatic head. The pancreatic duct is nondilated. The gallbladder is distended containing 1.5 cm stone in the gallbladder neck. There is gallbladder wall thickening and pericholecystic fluid. There is celina hepatis edema. The CBD is normal in caliber with no evidence of filling defects. There is no intrahepatic biliary ductal dilatation. The adrenal glands are unremarkable. There is a 2.4 cm right upper renal pole cyst. There is a 8 mm right lower renal pole cyst. There is 2 cm left upper renal pole cyst. There is a 1 cm T2 hypointense lesion with mild restricted diffusion in the most superior aspect of the left kidney. There is no hydronephrosis. There are no abnormally dilated bowel loops. There is no abdominal ascites. There are shotty lymph nodes in the celina hepatis and upper abdominal retroperitoneum likely reactive to the cholecystitis. The visualized osseous structures are grossly unremarkable. IMPRESSION: Cholelithiasis with MRI findings of acute cholecystitis. No choledocholithiasis or pancreaticobiliary ductal dilatation. 8 mm pancreatic head cyst. The differential diagnoses include parenchymal cyst, pseudocyst or early cystic neoplasm-IPMNT. Follow-up MRI with MRCP in one year is suggested. Hepatomegaly with severe fatty infiltration. Simple appearing renal cysts. 1 cm T2 hypointense lesion with some restricted diffusion. This is commensurate with Bosniak 2F- indeterminate cyst. Follow-up MRI with contrast in 6 months is suggested. Reported By: Jn Bunch MD 04/10 1211 Technologist: Jourdan Macias Transcribed Date/Time: 121 Rn Acute Care: Jn Bunch Printed Date/Time: By: Signed by: Jn Bunch Signed on: 02-Jan-2019 12:13) Problem List - Problems (1) Cholecystitis Code(s): K81.9 - CHOLECYSTITIS, UNSPECIFIED (2) IPMN (intraductal papillary mucinous neoplasm) Code(s): D49.0 - NEOPLASM OF UNSPECIFIED BEHAVIOR OF DIGESTIVE SYSTEM (3) Fatty (change of) liver, not elsewhere classified Code(s): K76.0 - FATTY (CHANGE OF) LIVER, NOT ELSEWHERE CLASSIFIED (4) Acid reflux Code(s): K21.9 - GASTRO-ESOPHAGEAL REFLUX DISEASE WITHOUT ESOPHAGITIS (5) Abdominal pain in male Code(s): R10.9 - UNSPECIFIED ABDOMINAL PAIN (6) HTN (hypertension) Code(s): I10 - ESSENTIAL (PRIMARY) HYPERTENSION (7) Hyperlipemia Code(s): E78.5 - HYPERLIPIDEMIA, UNSPECIFIED Assessment/Plan 'Assessment: - The patient is now postop and pain free. No CBD stones were seen on MRCP and ther are no indications for ERCP - I have informed Marciano that he has a pancreatic cyst that is likely an IPMN. I discussed the potential for malignancy associated with these and therefore the need to have surveillance - I have also advised a repeat colon cancer screening after he recovers from this surgery - Fatty liver with hepatomegaly will also merit a Fibroscan and an outpatient to exclude QUINTERO and cirrhosis - GERD by history Plan: -- Followup as outpatient to arrange colon cancer screening, IPMN surveillance and Fibroscan to exclude QUINTERO -- Postop care as per Dr Ramirez
[2019-01-02] MEDS: morphine SULFATE 4 MG/ML VIAL IVPUSH PRN (21:54)
[2019-01-03] MEDS: ACETAMINOPHEN 1000 MG/100 ML VIAL (NON FORMULARY) IVPB PRN ×3 (01:07→09:40)
[2019-01-03] MEDS: morphine SULFATE 4 MG/ML VIAL IVPUSH PRN (04:29)
[2019-01-03 08:06] LABS: BASO % 0.3 % (0-2.0); EOS % 0.1 % (0-4.5); HEMATOCRIT 50.6 % (35.4-49); HEMOGLOBIN 16.9 GM/dL (11.7-16.9); LYMPH % 14.3 % (8-40); MCH 30.6 pg (25.7-33.7); MCHC 33.3 g/dl (32.0-35.9); MEAN CELL VOLUME 91.8 fl (80-96); MEAN PLT VOLUME 9.5 fl (7.5-11.1); MONO % 9.7 % (3.8-10.2); NEUT % 75.6 % (42.8-82.8); PLATELET COUNT 146 K/MM3 (134-434); RBC 5.51 M/mm3 (4.00-5.60); RDW 13.2 % (11.9-15.9); WHITE BLOOD COUNT 15.8 K/mm3 (4.0-10.0)
[2019-01-03 08:23] LABS: ALBUMIN 3.4 g/dl (3.4-5.0); BILIRUBIN,TOTAL 1.1 mg/dL (0.2-1); CALCIUM 8.6 mg/dL (8.5-10.1); CREATININE 0.9 mg/dL (0.55-1.3); POTASSIUM 3.9 mmol/L (3.5-5.1); TOT PROT 6.4 g/dl (6.4-8.2)
[2019-01-03] MEDS ORDERED: NICOTINE 21 MG/24 HOURS TOPICAL PATCH TD SCH (10:00)
--- NOTE | 2019-01-03 10:39 | DS ---
Physical Examination Vital Signs: Vital Signs Temperature 98.2 F 01/03/19 06:12 Pulse Rate 102 H 01/03/19 06:12 Respiratory Rate 18 01/02/19 20:25 Blood Pressure 146/89 01/03/19 06:12 O2 Sat by Pulse Oximetry (%) 95 01/02/19 17:20 Findings/Remarks: AWAKE ALERT POD#1 COMFORTABLE ATE BREAKFAST NO PAIN Constitutional: Yes: No Distress Eyes: Yes: WNL HENT: Yes: WNL Neck: Yes: WNL Cardiovascular: Yes: WNL Respiratory: Yes: WNL Gastrointestinal: Yes: Soft, Other (CLEAN ABDOMINAL SURGICAL SITE) Musculoskeletal: Yes: WNL Extremities: Yes: WNL Edema: No Labs: CBC, BMP 01/03/19 05:30 01/03/19 05:30 Discharge Summary Reason For Visit: CHOLECYSTITIS Current Active Problems Abdominal pain in male (Acute) Acid reflux (Acute) Cholecystitis (Acute) Fatty (change of) liver, not elsewhere classified (Acute) HTN (hypertension) (Acute) Hyperlipemia (Acute) IPMN (intraductal papillary mucinous neoplasm) (Acute) Smoker (Acute) Tobacco abuse counseling (Acute) Procedures: Principal: CHOLCYSTECTOMY Hospital Course: S/P LAPCHOL, TOLERATED WELL, ADVANCED DIET DC HOME Condition: Improved - Instructions Diet, Activity, Other Instructions: SEE YOUR DOCTOR IN 2-3 DAYS LOW FAT/NA+ DIET Disposition: HOME - Home Medications Comprehensive Discharge Medication List: Ambulatory Orders Nicotine Patch [Nicoderm Patch -] 21 mg TD DAILY patch 01/03/19
--- NOTE | 2019-01-03 11:01 | PN ---
Progress Note (short form) - Note Progress Note: Anesthesia POD#! S/P Lap Cholecystectomy under GA VSS,no N/V,out of bed to chair,tolerating food. Pain is bearable. Minnie Stanley MD.
[2019-01-03 12:39] VITALS: BP 159/76; PULSE 100; TEMP 98.7
--- NOTE | 2019-01-06 19:06 | PATH ---
Surgical Pathology Report Patient Name: MARCIANO BENZ Med. Rec. #: [id number] /Age/Gender: 1965 (Age: 53) / M Account: [id number] Location: [facility] MED/SURG Taken: 01/02/2019 Received: 01/03/2019 Reported: 01/06/2019 Physicians: Ajit Ramirez M.D. Specimen(s) Received GALLBLADDER Clinical History Acute cholecystitis Final Diagnosis GALLBLADDER, LAPAROSCOPIC CHOLECYSTECTOMY: MARKED ACUTE AND CHRONIC CHOLECYSTITIS WITH CHOLELITHIASIS. Electronically Signed Nicky Vuong M.D. Gross Description Received in formalin, labeled "gallbladder," is a 10 x 4 x 2 cm. gallbladder with a 0.7 cm. in length portion of cystic duct attached. The outer surface is pink-espino and varies from smooth to shaggy. The lumen contains numerous black calculi ranging in size from 0.1-2 cm. The mucosa is pink-espino and partially eroded. The wall of the gallbladder measures 0.3 cm. in thickness. Parts Counter Representative sections are submitted in one cassette. MLSZ/01/03/2019 [place]/01/03/2019
== END 2019-01-03 12:52 | disposition home or self-care (01) | DRG 263 ==
LOC: JER 15:00 → JERBED 19:32 → J8W 01-02 00:28
PROVIDERS: ADMIT Family Medicine; ATTEND Family Medicine
PROC: 0FT44ZZ Resection of Gallbladder, Percutaneous Endoscopic Approach (ICD-10-PCS; principal; 2019-01-02 14:00)
DX: K80.00 Calculus of gallbladder with acute cholecystitis without obstruction (principal); K86.2 Cyst of pancreas; D75.1 Secondary polycythemia; K76.0 Fatty (change of) liver, not elsewhere classified; I10 Essential (primary) hypertension; D49.0 Neoplasm of unspecified behavior of digestive system; E86.0 Dehydration; E78.5 Hyperlipidemia, unspecified; R09.02 Hypoxemia; K21.9 Gastro-esophageal reflux disease without esophagitis; F17.210 Nicotine dependence, cigarettes, uncomplicated; Z71.6 Tobacco abuse counseling; D72.829 Elevated white blood cell count, unspecified
CPT/HCPCS: 36415; 74181-TC; 76705-TC; 80053; 80061; 82550; 83721; 84484; 85025; 86140; 86301; 86850; 86900; 86901; 88304-TC; 93005; 93010; 94760; 99284-25; J0131; J7030

== ENCOUNTER 2023-11-06 21:59 | Emergency (ER) | payer OTHER ==
[2023-11-06 22:28] VITALS: BP 172/91; PULSE 102; RESP 18; TEMP 97.5; BMI 29.8
[2023-11-06] MEDS ORDERED: LIDOCAINE 4% PATCH TP ONE (22:39)
[2023-11-06] MEDS ORDERED: CYCLOBENZAPRINE HCL 10 MG TABLET (FP) ONE (22:39)
[2023-11-06] MEDS: LIDOCAINE 4% PATCH TP ONE (22:42)
[2023-11-06] MEDS: LIDOCAINE PATCH REMOVAL MC SCH (22:43)
[2023-11-06] MEDS: CYCLOBENZAPRINE HCL 10 MG TABLET (FP) PO ONE (23:22)
== END 2023-11-06 23:24 | disposition home or self-care (01) ==
LOC: JER 21:59 → JERFT 21:59
DX: S46.912A Strain of unspecified muscle, fascia and tendon at shoulder and upper arm level, left arm, initial encounter (principal); X50.1XXA Overexertion from prolonged static or awkward postures, initial encounter
CPT/HCPCS: 73030-TC-LT-FY; 99283-25